=== PATIENT | female | born 1990 | race Caucasian/White ===

== ENCOUNTER 2020-03-30 12:30 | Outpatient (RCR) | payer BC, SELFPAY ==
--- NOTE | 2020-03-02 13:43 | PTOPEVAL ---
Thank you for referring Shama Aguilar to [facility] The patient is scheduled to be seen for therapy? 2 x/week for 4 weeks. Please review, sign, date and return this plan of care XENIA. I agree with and certify that the following plan of care is medically necessary. Referring Physician Date Admitting Provider: Attending Provider: Jorge Finnegan MD Referring Provider: *PT Outpatient Evaluation Start: 03/02/20 12:28 Freq: Status: Active Protocol: Document 03/02/20 12:28 [facility] (Rec: 03/02/20 13:26 [facility] [id number]) Therapy Assessment Status Assessment Status Assessment Status Evaluation Outpatient Past Medical History Past Medical History No Past Medical/Surgical History Patient/Family Denies Significant Past Medical/ Surgical History Evaluation Information Problem Diagnosis back pain Additional Evaluation Detail Pt reports increased pain and difficulty with lifting, climbing stairs, occasional sleep disturbance, and performing job duties. Subjective Information Has had back pain on and off Query Text:As Reported By Patient/ for 3 years. Reports it comes Family on insidiously and corrects itself. Pt has had recent back pain that radiates up and down her spine; current episode last lasted for past 2 weeks. Described as tightness, achy, and sharp. Pain comes on randomly. Occasionally has spasms that prevent her from bending over or standing up from a bent position. Restricted not to lift more than 25 lbs at work. 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 Denies numbness/tingling/or pain medication use. Diagnostic Tests X-Rays For This Problem No MRI For This Problem No Pain Assessment Timing of Pain Assessment Timing of Pain Assessment Assessment Pain Scale Pain Scale Used Numeric (1 - 10) Self Report Pain Assessment Lower Back Reported Pain Level 3 Pain Description Sharp,Soreness,Tightness Pain Frequency Continuous Pain Score Pain Score 3: Self Report Cervical and Lumbar ROM Lumbar ROM [place]ár[place]
--- NOTE | 2020-03-30 13:53 | PTOPEVAL ---
Thank you for referring Shama Aguilar to [facility] [place] Patient has been discharged from physical therapy secondary to meeting all goals and meeting max potential. I agree with and certify that the following plan of care is medically necessary. Referring Physician Date Admitting Provider: Attending Provider: Jorge Finnegan MD Referring Provider: *PT Outpatient Evaluation Start: 03/02/20 12:28 Freq: Status: Active Protocol: Document 03/30/20 12:35 [facility] (Rec: 03/30/20 13:42 [facility] [id number]) Therapy Assessment Status Assessment Status Assessment Status Discharge Outpatient Past Medical History Past Medical History No Past Medical/Surgical History Patient/Family Denies Significant Past Medical/ Surgical History Evaluation Information Problem Diagnosis back pain Additional Evaluation Detail Pt reports increased pain and difficulty with lifting, climbing stairs, occasional sleep disturbance, and performing job duties. RE-EVAL: 03/30/20 Pt states she returned to work with note from MD to begin work. Employer told her to return to work when cleared by HR. Pt states she is doing a lot better and not experiencing pain with walking , lifting, climbing stairs and no sleep disruptance. Pt currently sleeping on foam on ground. Advised to get mattress and pt states she plans to soon. Subjective Information Has had back pain on and off Query Text:As Reported By Patient/ for 3 years. Reports it comes Family on insidiously and corrects itself. Pt has had recent back pain that radiates up and down her spine; current episode last lasted for past 2 weeks. Described as tightness, achy, and sharp. Pain comes on randomly. Occasionally has spasms that prevent her from bending over or standing up from a bent position. Restricted not to lift more
== END 2020-03-31 13:16 | disposition home or self-care (01) ==
LOC: ANHPT 12:30
PROVIDERS: PCP Family Medicine; Visit Provider Family Medicine
DX: M54.9 Dorsalgia, unspecified (principal)
CPT/HCPCS: 97110; 97140; 97161; 97530

== ENCOUNTER 2020-04-13 09:09 | Outpatient (CLI) | payer BC, SELFPAY ==
[2020-04-13 09:57] LABS: Hematocrit 31.2 % (37.0-47.0); Hemoglobin 9.5 g/dL (12.0-15.0); Mean Corpuscular HGB Conc 30.4 g/dl (32-36); Mean Corpuscular Hemoglobin 24.4 pg (26-34); Mean Platelet Volume 8.7 fl (7.4-10.4); Platelet Count Result 304 k/mm3 (150-375); Red Cell Distribution Width 14.7 % (11.5-14.5)
[2020-04-13 10:26] LABS: Beta HCG Quantitative < 2.39 mIU/ML
[2020-04-13 10:35] LABS: Free T4 Free Thyroxine 1.33 ng/mL (0.78-2.19)
[2020-04-17 06:29] LABS: Progesterone <0.2 ng/mL (***)
[2020-04-18 04:26] LABS: Insulin Level Total 8.7 uIU/mL (<=19.6)
[2020-04-19 10:29] LABS: DHEA-Sulfate 57 mcg/dL (18-391)
[2020-04-20 13:47] LABS: Testosterone Free 4.1 pg/mL (0.1-6.4); Testosterone Total 28 ng/dL (2-45)
== END 2020-04-13 09:10 | disposition home or self-care (01) ==
PROVIDERS: PCP Family Medicine; Visit Provider Nurse Practitioner
DX: N93.9 Abnormal uterine and vaginal bleeding, unspecified (principal)
CPT/HCPCS: 36415; 82627; 83036; 83525; 84144; 84146; 84402; 84403; 84439; 84443; 84702; 85027

== ENCOUNTER 2020-04-25 16:12 | Outpatient (CLI) | payer BC, SELFPAY ==
--- NOTE | ~2020-04-25 | US_ITS ---
EXAMINATION: US pelvic complete w TV DATE: 04/25/2020 17:01 INDICATION: Abnormal uterine bleeding. Comparison:No prior studies for comparison. TECHNIQUE: Multiple transabdominal and endovaginal sonographic images of the pelvis performed. FINDINGS: The uterus measures 7.9 x 4.4 x 4 cm. The endometrial complex measures 1 cm. The right ovary measures 3 x 2.1 x 1.9 cm and the left ovary is not visualized. There is no free fluid in the pelvis. There are no abnormal masses seen on either side. IMPRESSION: 1. Unremarkable pelvic ultrasound. Reviewed, dictated and finalized at location A.
== END 2020-04-25 16:13 | disposition home or self-care (01) ==
PROVIDERS: PCP Family Medicine; Visit Provider Nurse Practitioner
DX: N93.8 Other specified abnormal uterine and vaginal bleeding (principal)
CPT/HCPCS: 76830; 76856